=== PATIENT | male | born 1965 | race Two or more races ===

== ENCOUNTER 2017-08-24 20:51 | Emergency (ER) | payer SELFPAY ==
[~2017-08-24] VITALS: Ht 193 cm; Wt 117.9 kg
[~2017-08-24 20:51] MED LIST: NOR10T
[2017-08-24 22:10] LABS: Basophils # (auto) 0.1 uL; Basophils % (auto) 0.4 % (0.0-2.0); Eosinophils # (auto) 0.1 uL; Eosinophils % (auto) 0.4 % (0.0-7.0); Hematocrit 46.1 % (41.0-53.0); Hemoglobin 15.9 g/dL (13.5-17.5); Lymphocytes # (auto) 0.8 uL; Lymphocytes % (auto) 6.4 % (10.0-50.0); Mean Corpuscular Hemoglobin 33.4 pg (28.0-32.0); Mean Corpuscular Hgb Conc. 34.4 g/dL (32.0-36.0); Mean Corpuscular Volume 96.9 fL (80.0-100.0); Mean Platelet Volume 8.2 fL (6.9-10.8); Monocytes # (auto) 0.7 uL; Monocytes % (auto) 5.5 % (0.0-12.0); Neutrophils # (auto) 10.9 uL; Neutrophils % (auto) 87.3 % (37.0-80.0); Nucleated Red Blood Cells % 0.1 %; Platelet Count (auto) 106 10^3/uL (140-450); Red Cell Distribution Width 12.7 % (11.8-14.3); White Blood Cell 12.4 10^3/uL (4.4-10.8)
[2017-08-24 22:27] LABS: Albumin 3.2 g/dL (3.4-5.0); Anion Gap 13 (5-15); Aspartate Aminotransferase 32 U/L (15-37); BUN/Creatinine Ratio 11.8; Blood Urea Nitrogen 9 mg/dL (7-18); Calcium 8.6 mg/dL (8.5-10.1); Carbon Dioxide 24 mmol/L (21-32); Chloride 102 mmol/L (98-107); GFR African American 138 mL/min; GFR Non-African American 114 mL/min; Glucose 120 mg/dL (74-106); Magnesium 1.8 mg/dL (1.6-2.6); Potassium 4.3 mmol/L (3.5-5.1); Sodium 139 mmol/L (136-145)
[2017-08-24 22:28] LABS: INR 0.98 (0.9-1.15); Partial Thromboplastin Time 27.3 sec (22.64-33.71); Prothrombin Time 10.7 sec (9.37-12.3)
[2017-08-24 22:32] LABS: Alkaline Phosphatase 89 U/L (45-117); Bilirubin, Total 0.9 mg/dL (0.2-1.0); Total Protein 7.4 g/dL (6.4-8.2)
[2017-08-24 22:34] LABS: Urine Bilirubin Negative (Negative); Urine Blood 1+ /uL (Negative); Urine Color Yellow (Yellow); Urine Glucose Normal (Normal); Urine Ketone Negative (Negative); Urine Nitrite Negative (Negative); Urine RBC 4 /hpf (0 - 3); Urine Urobilinogen Normal (Negative); Urine WBC Clumps PRESENT /hpf (None Seen); Urine pH 5.5 (5.0-8.0)
[2017-08-24 22:38] VITALS: BP 137/56
== END 2017-08-25 00:04 | disposition left against medical advice (07) ==
LOC: EDBD 20:51 → ER 20:51 → EDUNIT# 20:51 → ER 08-25 00:04
DX: R53.1 Weakness (principal); Z53.21 Procedure and treatment not carried out due to patient leaving prior to being seen by health care provider
CPT/HCPCS: 36415; 70450; 80053; 81001; 82962; 83605; 83735; 84484; 85025; 85379; 85610; 85730; 93005

== ENCOUNTER 2018-08-03 02:12 | Emergency (ER) | payer BC ==
[~2018-08-03] VITALS: Ht 193 cm; Wt 122.5 kg
[2018-08-03 02:22] VITALS: BP 144/82
[2018-08-03 02:49] LABS: Basophils # (auto) 0.2 uL; Eosinophils # (auto) 0.1 uL; Eosinophils % (auto) 2.2 % (0.0-7.0); Hemoglobin 15.8 g/dL (13.5-17.5); Lymphocytes # (auto) 2.1 uL; Lymphocytes % (auto) 33.4 % (10.0-50.0); Mean Corpuscular Hgb Conc. 33.7 g/dL (32.0-36.0); Mean Corpuscular Volume 95.1 fL (80.0-100.0); Monocytes # (auto) 0.5 uL; Monocytes % (auto) 7.6 % (0.0-12.0); Neutrophils # (auto) 3.3 uL; Neutrophils % (auto) 53.8 % (37.0-80.0); Nucleated Red Blood Cells % 0.1 %; Platelet Count (auto) 101 10^3/uL (140-450); Red Blood Cells 4.94 10^6/uL (4.5-5.90); Red Cell Distribution Width 13.7 % (11.8-14.3); White Blood Cell 6.2 10^3/uL (4.4-10.8)
[2018-08-03 03:05] LABS: Alanine Aminotransferase 56 U/L (16-61); Albumin 3.2 g/dL (3.4-5.0); Anion Gap 7 (5-15); Calcium 8.2 mg/dL (8.5-10.1); Carbon Dioxide 30 mmol/L (21-32); Chloride 102 mmol/L (98-107); Glucose 134 mg/dL (74-106); INR 0.98 (0.9-1.15); Partial Thromboplastin Time 27.3 sec (23.78-33.04); Potassium 3.9 mmol/L (3.5-5.1); Prothrombin Time 10.5 sec (9.27-12.13); Sodium 139 mmol/L (136-145)
[2018-08-03 03:08] LABS: Alkaline Phosphatase 104 U/L (45-117); Aspartate Aminotransferase 35 U/L (15-37); BUN/Creatinine Ratio 21.4; Bilirubin, Total 0.5 mg/dL (0.2-1.0); Blood Urea Nitrogen 15 mg/dL (7-18); GFR African American 151 mL/min; GFR Non-African American 125 mL/min; Total Protein 7.7 g/dL (6.4-8.2)
== END 2018-08-03 05:35 | disposition left against medical advice (07) ==
LOC: ER 02:19
DX: R07.89 Other chest pain (principal); Z53.21 Procedure and treatment not carried out due to patient leaving prior to being seen by health care provider
CPT/HCPCS: 36415; 71045; 80053; 83735; 83880; 84484; 85025; 85610; 85730; 93005; 94761

== ENCOUNTER 2021-01-08 16:08 | Inpatient (IN) | payer BC, MEDICARE ==
[~2021-01-08] VITALS: Ht 193 cm; Wt 115.0 kg
[2021-01-08] MEDS ORDERED: InsuLIN REG 1unit/0.01ml Soln (100units/ml) IV ONE (16:30)
[2021-01-08] MEDS ORDERED: SODIUM CHLORIDE 0.9% 1,000 ML IV ONE ×2 (16:30)
[2021-01-08 17:11] LABS: Basophils # (auto) 0.1 10 ^3/uL (0-0.2); Basophils % (auto) 0.6 % (0.0-2.0); Eosinophils # (auto) 0 10 ^3/uL (0-0.8); Eosinophils % (auto) 0.1 % (0.0-7.0); Hematocrit 48.6 % (41.0-53.0); Hemoglobin 16.7 g/dL (13.5-17.5); Lymphocytes # (auto) 2.7 10 ^3/uL (0.4-5.4); Lymphocytes % (auto) 16.9 % (10.0-50.0); Mean Corpuscular Hemoglobin 30.4 pg (28.0-32.0); Mean Corpuscular Hgb Conc. 34.4 g/dL (32.0-36.0); Mean Corpuscular Volume 88.3 fL (80.0-100.0); Monocytes # (auto) 0.8 10 ^3/uL (0-1.3); Monocytes % (auto) 4.7 % (0.0-12.0); Neutrophils # (auto) 12.5 10 ^3/uL (1.6-8.6); Neutrophils % (auto) 77.7 % (37.0-80.0); Nucleated Red Blood Cells % 0.1 %; Platelet Count (auto) 209 10^3/uL (140-450); Red Cell Distribution Width 12.7 % (11.8-14.3)
[2021-01-08 17:35] LABS: Albumin 3.6 g/dL (3.4-5.0); Anion Gap 13 (5-15); Blood Urea Nitrogen 16 mg/dL (7-18); Carbon Dioxide 24 mmol/L (21-32); Chloride 90 mmol/L (98-107); Glucose 388 mg/dL (74-106); Potassium 3.5 mmol/L (3.5-5.1); Sodium 127 mmol/L (136-145)
[2021-01-08 17:37] LABS: Alanine Aminotransferase 39 U/L (16-61); Aspartate Aminotransferase 21 U/L (15-37); BUN/Creatinine Ratio 17.8; GFR African American 112 mL/min; GFR Non-African American 93 mL/min
[2021-01-08 17:42] LABS: Alkaline Phosphatase 92 U/L (45-117); Bilirubin, Total 0.9 mg/dL (0.2-1.0); Total Protein 8.2 g/dL (6.4-8.2)
[2021-01-08] MEDS ORDERED: AZITHROMYCIN 500MG/ 250ML 250 ML IV ONE (17:45)
[2021-01-08] MEDS ORDERED: cefTRIAXone 1GM/50ML D5W 50 ML IV ONE (17:45)
[2021-01-08] MEDS ORDERED: NITROGLYCERIN 0.4 MG SL TAB SL PRN (18:00)
[2021-01-08] MEDS ORDERED: MORPHINE SULF INJ 2 MG/ML SYRINGE 1ML IV PRN (18:00)
[2021-01-08] MEDS ORDERED: ACETAMINOPHEN 500 MG TAB PO PRN (18:45)
[2021-01-08] MEDS ORDERED: traMADol HCL 50 MG TAB PO PRN (18:45)
[2021-01-08] MEDS ORDERED: PROMETHAZINE HCL 25 MG/ML 1ML IV PRN (18:45)
[2021-01-08] MEDS ORDERED: LACTULOSE 20Gm/30ML SOLN PO PRN (18:45)
[2021-01-08] MEDS ORDERED: TEMAZEPAM 15 MG CAP PO PRN (18:45)
[2021-01-08] MEDS ORDERED: levoFLOXacin 500MG 100 ML IV ONE (18:45)
[2021-01-08] MEDS ORDERED: DEXTROSE (50%) 50ML SYRG IV PRN (18:45)
[2021-01-08] MEDS: ACCU-CHEK COMFORT CURVE STRIP VI SCH (20:00)
[2021-01-08] MEDS: InsuLIN REG 1unit/0.01ml Soln (100units/ml) SC SCH (20:00)
[2021-01-08 21:00] VITALS: BP 132/65
[2021-01-08] MEDS: SODIUM CHLORIDE 0.9% 1,000 ML IV SCH (21:13)
[2021-01-08] MEDS: INSULIN LANTUS (GLARGINE) 1 /0.01ml (100units/ml) SC SCH (21:14)
[2021-01-08] MEDS ORDERED: CLINDAMYCIN 600MG IV 50 ML IV SCH (22:00)
[2021-01-08] MEDS ORDERED: FAMOTIDINE 20 MG TAB PO SCH (22:00)
[2021-01-08 22:43] VITALS: BP 132/65
[2021-01-09] MEDS: ACCU-CHEK COMFORT CURVE STRIP VI SCH ×3 (00:23→08:00)
[2021-01-09] MEDS: InsuLIN REG 1unit/0.01ml Soln (100units/ml) SC SCH ×3 (00:25→08:00)
[2021-01-09] MEDS: SODIUM CHLORIDE 0.9% 1,000 ML IV SCH (02:22)
[2021-01-09 05:24] VITALS: BP 97/54
[2021-01-09 05:46] LABS: Basophils # (auto) 0.1 10 ^3/uL (0-0.2); Basophils % (auto) 0.3 % (0.0-2.0); Eosinophils # (auto) 0 10 ^3/uL (0-0.8); Hematocrit 43.9 % (41.0-53.0); Hemoglobin 15.4 g/dL (13.5-17.5); Lymphocytes # (auto) 2.8 10 ^3/uL (0.4-5.4); Lymphocytes % (auto) 17.5 % (10.0-50.0); Mean Corpuscular Hemoglobin 30.8 pg (28.0-32.0); Mean Corpuscular Hgb Conc. 35.1 g/dL (32.0-36.0); Mean Corpuscular Volume 87.8 fL (80.0-100.0); Monocytes # (auto) 0.9 10 ^3/uL (0-1.3); Monocytes % (auto) 5.8 % (0.0-12.0); Neutrophils # (auto) 12.1 10 ^3/uL (1.6-8.6); Neutrophils % (auto) 76.4 % (37.0-80.0); Nucleated Red Blood Cells % 0.1 %; Platelet Count (auto) 189 10^3/uL (140-450); Red Cell Distribution Width 12.4 % (11.8-14.3); White Blood Cell 15.9 10^3/uL (4.4-10.8)
[2021-01-09 06:12] LABS: Albumin 2.8 g/dL (3.4-5.0); BUN/Creatinine Ratio 29.8; Bilirubin, Total 0.5 mg/dL (0.2-1.0); Calcium 8.7 mg/dL (8.5-10.1); Total Protein 6.7 g/dL (6.4-8.2)
[2021-01-09] MEDS: INSULIN LANTUS (GLARGINE) 1 /0.01ml (100units/ml) SC SCH (07:00)
[2021-01-09] MEDS ORDERED: CLINDAMYCIN 600MG IV 50 ML IV SCH (09:00)
[2021-01-09] MEDS ORDERED: ENOXAPARIN SOD 40 MG/0.4 ML SYRINGE SC SCH (10:00)
[2021-01-09] MEDS ORDERED: levoFLOXacin 500MG 100 ML IV SCH (10:00)
== END 2021-01-09 08:00 | disposition left against medical advice (07) | DRG 871 ==
LOC: EDBD 16:08 → ER 16:08 → TELE 18:00 → TELE-CENTR 19:47
PROVIDERS: ADMIT Internal Medicine; ATTEND Internal Medicine
DX: A41.9 Sepsis, unspecified organism (principal); J18.9 Pneumonia, unspecified organism; E87.1 Hypo-osmolality and hyponatremia; L02.512 Cutaneous abscess of left hand; J44.0 Chronic obstructive pulmonary disease with (acute) lower respiratory infection; L03.012 Cellulitis of left finger; E11.65 Type 2 diabetes mellitus with hyperglycemia; E66.9 Obesity, unspecified; I50.9 Heart failure, unspecified; Z53.29 Procedure and treatment not carried out because of patient's decision for other reasons; Z20.822 Contact with and (suspected) exposure to COVID-19; Z68.30 Body mass index [BMI] 30.0-30.9, adult; Z83.3 Family history of diabetes mellitus; Z85.819 Personal history of malignant neoplasm of unspecified site of lip, oral cavity, and pharynx
CPT/HCPCS: 36415; 71045; 73200; 80053; 82962; 83036; 84484; 85025; 85652; 86141; 87040; 87077; 87186; 87205; 87426; 93005; 96361; 96365; 96367; 96375; G0378; J0696; J1815; J1956; J3490

== ENCOUNTER 2021-01-09 09:52 | Emergency (ER) | payer MEDICARE ==
[~2021-01-09] VITALS: Ht 182.9 cm; Wt 95.3 kg
[2021-01-09] MEDS ORDERED: SODIUM CHLORIDE 0.9% 1,000 ML IV ONE (10:00)
[2021-01-09] MEDS ORDERED: SODIUM CHLORIDE 0.9% 1,000 ML IVB ONE (10:00)
[2021-01-09] MEDS ORDERED: cefTRIAXone 1GM/50ML D5W 50 ML IV ONE (10:15)
[2021-01-09] MEDS ORDERED: FUROSEMIDE 40 MG/4 ML VIAL IV ONE (10:15)
[2021-01-09 10:20] VITALS: BP 122/74
[2021-01-09 10:40] LABS: Basophils # (auto) 0 10 ^3/uL (0-0.2); Basophils % (auto) 0.3 % (0.0-2.0); Eosinophils # (auto) 0 10 ^3/uL (0-0.8); Hematocrit 48.7 % (41.0-53.0); Hemoglobin 16.7 g/dL (13.5-17.5); Lymphocytes # (auto) 1.9 10 ^3/uL (0.4-5.4); Lymphocytes % (auto) 15.1 % (10.0-50.0); Mean Corpuscular Hemoglobin 30.1 pg (28.0-32.0); Mean Corpuscular Hgb Conc. 34.2 g/dL (32.0-36.0); Mean Corpuscular Volume 87.9 fL (80.0-100.0); Monocytes # (auto) 0.6 10 ^3/uL (0-1.3); Monocytes % (auto) 4.9 % (0.0-12.0); Neutrophils # (auto) 10.3 10 ^3/uL (1.6-8.6); Neutrophils % (auto) 79.7 % (37.0-80.0); Nucleated Red Blood Cells % 0.1 %; Platelet Count (auto) 202 10^3/uL (140-450); Red Blood Cells 5.54 10^6/uL (4.5-5.90); Red Cell Distribution Width 12.5 % (11.8-14.3); White Blood Cell 12.9 10^3/uL (4.4-10.8)
[2021-01-09 10:43] LABS: Albumin 3.3 g/dL (3.4-5.0); Anion Gap 12 (5-15); Blood Alcohol < 3.0 mg/dL (0-5); Blood Urea Nitrogen 17 mg/dL (7-18); Carbon Dioxide 23 mmol/L (21-32); Chloride 96 mmol/L (98-107); Glucose 290 mg/dL (74-106); Potassium 3.2 mmol/L (3.5-5.1); Sodium 131 mmol/L (136-145)
[2021-01-09 10:49] LABS: Alanine Aminotransferase 36 U/L (16-61); Alkaline Phosphatase 81 U/L (45-117); Aspartate Aminotransferase 19 U/L (15-37); BUN/Creatinine Ratio 23.3; Bilirubin, Total 0.8 mg/dL (0.2-1.0); GFR African American 143 mL/min; GFR Non-African American 118 mL/min; Total Protein 7.8 g/dL (6.4-8.2)
== END 2021-01-09 12:40 | disposition home or self-care (01) ==
LOC: ER 09:52 → EDBD 09:52 → ER 12:40
DX: E11.65 Type 2 diabetes mellitus with hyperglycemia (principal); I50.9 Heart failure, unspecified; F17.210 Nicotine dependence, cigarettes, uncomplicated; F12.10 Cannabis abuse, uncomplicated
CPT/HCPCS: 36415; 71045; 80053; 80320; 83880; 84484; 85025; 93005